=== PATIENT | male | born 1945 | race Caucasian/White ===

== ENCOUNTER 2018-07-14 23:32 | Emergency (ER) | payer MEDICARE ==
[~2018-07-14 23:32] MED LIST: Sodium Chloride Irrig Solution 250 ML BOT ONE
[2018-07-14] MEDS ORDERED: Lidocaine 1% w/Epinephrine 1:100K 20 ML VIAL ONE (23:36)
--- NOTE | 2018-07-15 00:21 | CT ---
CT BRAIN NONCONTRAST: DATE: 07/15/2018 Time: 12:00 midnight HISTORY: 73-year-old male status post acute head trauma from fall FINDINGS: There is no evidence of acute intra-axial or extra-axial hemorrhage. There is no midline shift or any other mass effect. There is no extra-axial fluid collection. There is no evidence of obstructive hydrocephalus. Calvarium is intact. IMPRESSION: No acute intracranial findings.
== END 2018-07-15 01:00 | disposition home or self-care (01) ==
LOC: MADERS 23:32
DX: S01.311A Laceration without foreign body of right ear, initial encounter (principal); S00.83XA Contusion of other part of head, initial encounter; I25.10 Atherosclerotic heart disease of native coronary artery without angina pectoris; E78.5 Hyperlipidemia, unspecified; I10 Essential (primary) hypertension; Z79.82 Long term (current) use of aspirin; Z79.899 Other long term (current) drug therapy; W01.0XXA Fall on same level from slipping, tripping and stumbling without subsequent striking against object, initial encounter
CPT/HCPCS: 12052; 70450; J2001

== ENCOUNTER 2019-04-18 11:05 | Emergency (ER) | payer OTHER ==
[~2019-04-18 11:05] MED LIST changes: +Sodium Chloride 0.9% 1,000 ML BAG ONE; -Sodium Chloride Irrig Solution 250 ML BOT ONE
[2019-04-18 11:50] LABS: #Basophils 0.1 thou/uL (0.0-0.2); #Eosinphils 0.1 thou/uL (0.0-0.7); #Lymphocytes 0.7 thou/uL (1.20-3.40); #Monocytes 0.7 thou/uL (0.11-0.59); #Neutrophils 4.8 thou/uL (1.40-6.50); %Basophils 1.6 % (0.0-1.0); %Eosinophils 1.9 % (0.0-10.0); %Lymphocytes 11.2 % (21.0-51.0); %Monocytes 10.9 % (0.0-10.0); %Neutrophils 74.5 % (42.0-75.0); Hemoglobin 12.2 g/dL (14.0-18.0); Mean Corpuscular HGB CONC 32.3 g/dL (32.0-36.0); Mean Corpuscular Hemoglobin 28.2 pg (27.0-31.0); Mean Corpuscular Volume 87.3 fL (78.0-98.0); Mean Platelet Volume 8.9 fL (7.4-10.4); Platelet Count 182 thou/uL (130-400); RBC Distribution Width 11.5 % (11.5-14.5); Red Blood Cell (RBC) Count 4.33 mill/uL (4.70-6.10); White Blood Cell (WBC) Count 6.4 thou/uL (4.8-10.8)
[2019-04-18] MEDS ORDERED: Aspirin Chewable 81 MG TAB ONE (11:50)
[2019-04-18 11:56] LABS: INR-International Normal Ratio 1.2; Prothrombin Time 14.9 SEC (12.0-14.7)
--- NOTE | 2019-04-18 11:57 | RAD ---
RADIOGRAPH CHEST 1 VIEW: DATE: 04/18/2019 HISTORY: 74-year-old male with chest pain FINDINGS: The thoracic aorta is tortuous and ectatic. There is no evidence of airspace density, pulmonary edema , or pneumothorax. The lateral costophrenic angles are not effaced. No cardiomegaly. Sternotomy wires. No interval change since 11/29/2018. IMPRESSION: 1) No acute pulmonary findings. 2) ectasia of thoracic aorta.
[2019-04-18 12:08] LABS: ALT (SGPT) 15 U/L (8-55); AST (SGOT) 15 U/L (5-34); Albumin 3.6 g/dL (3.4-4.8); Alkaline Phosphatase 61 U/L (40-110); Anion Gap 15 mmol/L (10-20); BUN (Urea Nitrogen) 34 mg/dL (8.4-25.7); Bilirubin, Total 0.8 mg/dL (0.2-1.2); Calc. Creatinine Clearance 0 mL/min (70-130); Calcium 8.5 mg/dL (7.8-10.44); Carbon Dioxide 22 mmol/L (23-31); Chloride 105 mmol/L (98-107); Estimated GFR-MDRD 31; Globulin 3.5 g/dL (2.4-3.5); Glucose 104 mg/dL (83-110); Potassium 3.7 mmol/L (3.5-5.1); Protein, Total 7.1 g/dL (5.8-8.1); Sodium 138 mmol/L (136-145)
[2019-04-18 12:25] LABS: CKMB 1.4 ng/mL (0-6.6)
[2019-04-18] MEDS ORDERED: Oseltamivir 75 MG CAP ONE (12:37)
[2019-04-18] MEDS ORDERED: Enoxaparin Sodium 40 MG/0.4 ML SYRINGE ONE (12:38)
[2019-04-18] MEDS ORDERED: Enoxaparin Sodium 60 MG/0.6 ML SYRINGE ONE (12:38)
[2019-04-18 17:00] LABS: CKMB 1.7 ng/mL (0-6.6)
== END 2019-04-18 17:07 | disposition short-term general hospital (02) ==
LOC: MADERS 11:05
DX: J10.1 Influenza due to other identified influenza virus with other respiratory manifestations (principal); R07.9 Chest pain, unspecified; E78.5 Hyperlipidemia, unspecified; I10 Essential (primary) hypertension; I25.10 Atherosclerotic heart disease of native coronary artery without angina pectoris; Z79.82 Long term (current) use of aspirin; Z79.899 Other long term (current) drug therapy
CPT/HCPCS: 36415; 71045; 80053; 82553; 83605; 83880; 84484; 85025; 85610; 87804; 93005; 96360; 96372; J1650; J7050

== ENCOUNTER 2020-12-28 10:02 | Outpatient (CLI) | payer OTHER, MEDICARE | END 2020-12-28 10:03 | disposition home or self-care (01) | LOC: MADRAD 10:02 | PROVIDERS: ATTEND Internal Medicine Nephrology | DX: M25.551 Pain in right hip (principal); M25.552 Pain in left hip ==

== ENCOUNTER 2022-04-05 11:54 | Emergency (ER) | payer MEDICARE ==
[2022-04-05] MEDS ORDERED: Sodium Chloride 0.9% 1,000 ML ONE (12:54)
[2022-04-05 13:10] LABS: INR-International Normal Ratio 1.1; Prothrombin Time 14.7 sec (12.0-14.7)
[2022-04-05 13:11] LABS: PTT 32.6 sec (22.9-36.1)
[2022-04-05 13:19] LABS: ALT (SGPT) 17 U/L (8-55); AST (SGOT) 17 U/L (5-34); Albumin 3.4 g/dL (3.4-4.8); Alkaline Phosphatase 54 U/L (40-110); Anion Gap 13 mmol/L (10-20); BUN (Urea Nitrogen) 41 mg/dL (8.4-25.7); Band 16 % (5-11); Bilirubin, Total 0.5 mg/dL (0.2-1.2); CK (CPK) 200 U/L (30-200); Calc. Creatinine Clearance 0 mL/min (70-130); Calcium 8.1 mg/dL (7.8-10.44); Carbon Dioxide 22 mmol/L (23-31); Chloride 107 mmol/L (98-107); Eosinophils 2 % (0-10); Estimated GFR 21; Globulin 2.4 g/dL (2.4-3.5); Glucose 110 mg/dL (83-110); Hemoglobin 10.5 g/dL (14.0-18.0); Hypochromia SLIGHT = 6-15 cells (100X) (0-5/hpf); Lymphocytes 9 % (21-51); MDiff Complete? YES; Magnesium 2.1 mg/dL (1.6-2.6); Mean Corpuscular HGB CONC 34.2 g/dL (32.0-36.0); Mean Corpuscular Hemoglobin 30.5 pg (27.0-31.0); Mean Corpuscular Volume 89.2 fl (78.0-98.0); Monocytes 18 % (0-10); Neutrophil 55 % (42-75); Platelet Count 144 10x3/uL (130-400); Platelet Morphology Comment Appears Adequate; Potassium 4.4 mmol/L (3.5-5.1); Protein, Total 5.8 g/dL (5.8-8.1); RBC Distribution Width 11.8 % (11.5-14.5); Red Blood Cell (RBC) Count 3.45 mill/uL (4.70-6.10); Sodium 138 mmol/L (136-145); White Blood Cell (WBC) Count 4.3 10x3/uL (4.8-10.8)
[2022-04-05 13:36] LABS: CKMB 0.8 ng/mL (0-6.6)
[2022-04-05 13:49] LABS: Bilirubin Negative (Negative); Blood, Urine Negative (Negative); Clarity Slightly Cloudy (Clear); Glucose, Urine (Dipstick) Negative (Negative); Ketone, Urine Negative (Negative); Leukocyte Moderate (Negative); Nitrite Positive (Negative); Protein, Urine (Dipstick) Trace mg/dL (Neg-Trace); Specific Gravity, Urine 1.015 (1.005-1.030); Urobilinogen 0.2 mg/dL (Less than 2); pH, Urine 5.5 (5.0-9.0)
[2022-04-05 13:58] LABS: Bacteria/HPF 4+ HPF (None Seen); RBC/HPF 0-3 HPF (0-3); Squamous Epithelial 0-3 HPF (0-3); WBC/HPF Greater Than 50 HPF (0-3)
[2022-04-05] MEDS ORDERED: Aspirin 325 MG TAB ONE (14:03)
[2022-04-05] MEDS ORDERED: Sodium Chloride 0.9% 100 ML ONE (14:04)
[2022-04-05] MEDS ORDERED: cefTRIAXone\\ROCEPHIN 1 GM VIAL ONE (14:04)
[2022-04-05 14:48] LABS: SARS-CoV-2 NAA Rapid Test DETECTED (NotDetected)
== END 2022-04-05 17:45 | disposition short-term general hospital (02) ==
LOC: MADERS 11:54
DX: U07.1 COVID-19 (principal); I12.9 Hypertensive chronic kidney disease with stage 1 through stage 4 chronic kidney disease, or unspecified chronic kidney disease; N18.9 Chronic kidney disease, unspecified; R77.8 Other specified abnormalities of plasma proteins; I95.1 Orthostatic hypotension; N39.0 Urinary tract infection, site not specified; I25.10 Atherosclerotic heart disease of native coronary artery without angina pectoris; E78.5 Hyperlipidemia, unspecified; Z79.82 Long term (current) use of aspirin; Z79.899 Other long term (current) drug therapy
CPT/HCPCS: 71045; 80053; 81003; 81015; 82550; 82553; 83605; 83735; 83880; 84443; 84484; 85025; 85610; 85730; 87040; 87804; 93005; 96361; 96365; J0696; J3490; J7050; U0002

== ENCOUNTER 2023-12-06 11:45 | Emergency (ER) | payer MEDICARE ==
[2023-12-06] MEDS ORDERED: Sodium Chloride 0.9% 1,000 ML ONE (12:40)
[2023-12-06 12:49] LABS: ALT (SGPT) 10 U/L (8-55); AST (SGOT) 8 U/L (5-34); Albumin 3.2 g/dL (3.4-4.8); Alkaline Phosphatase 58 U/L (40-110); Anion Gap 16 mmol/L (10-20); BUN (Urea Nitrogen) 63 mg/dL (8.4-25.7); Bilirubin, Total 0.6 mg/dL (0.2-1.2); Calc. Creatinine Clearance 0 mL/min (70-130); Calcium 8.2 mg/dL (7.8-10.44); Carbon Dioxide 18 mmol/L (23-31); Chloride 111 mmol/L (98-107); Estimated GFR 13; Globulin 2.7 g/dL (2.4-3.5); Glucose 85 mg/dL (83-110); Protein, Total 5.9 g/dL (5.8-8.1); Sodium 139 mmol/L (136-145)
[2023-12-06 12:52] LABS: Band 1 % (5-11); Eosinophils 6 % (0-10); Hematocrit 32.1 % (42.0-52.0); Hemoglobin 10.2 g/dL (14.0-18.0); Hypochromia SLIGHT = 6-15 cells (100X) (0-5/hpf); Lymphocytes 6 % (21-51); MDiff Complete? YES; Manual Diff?? YES; Mean Corpuscular HGB CONC 31.7 g/dL (32.0-36.0); Mean Corpuscular Hemoglobin 30.4 pg (27.0-31.0); Mean Corpuscular Volume 96.1 fl (78.0-98.0); Mean Platelet Volume 8.9 fL (7.4-10.4); Neutrophil 79 % (42-75); Platelet Count 167 10x3/uL (130-400); RBC Distribution Width 13.2 % (11.5-14.5); Reactive Lymphocytes 6 % (0-10); Red Blood Cell (RBC) Count 3.35 mill/uL (4.70-6.10); White Blood Cell (WBC) Count 9.4 10x3/uL (4.8-10.8)
[2023-12-06 12:54] LABS: Monocytes 2 % (0-10); Platelet Adequacy Comment Appears Adequate
[2023-12-06 13:19] LABS: Critical Call Chemistry NUR.AW2@1318; Potassium 6.4 mmol/L (3.5-5.1)
[2023-12-06] MEDS ORDERED: Insulin Regular, Human 100 UNIT/ML 10 ML VIAL ONE (13:52)
[2023-12-06] MEDS ORDERED: Glucagon 1 MG/ML KIT ONE (13:52)
[2023-12-06] MEDS ORDERED: Dextrose 50% Abboject 50 ML SYRINGE ONE ×2 (13:52→16:56)
[2023-12-06] MEDS ORDERED: Sodium Chloride 0.9% 100 ML ONE (14:02)
[2023-12-06 14:10] LABS: Base Excess-Venous -5.7 mmol/L (-2.0 to 3.0); Bicarbonate (HCO3v) 19.5 mmol/L (22.0-28.0); CO2 Tension (PvCO2) 35.8 mmHg (42.0-51.0); Calcium, Ionized 1.05 mmol/L (1.15-1.33); Chloride 117 mmol/L (98-107); Hemoglobin - Calc 10.1 g/dL (14.0-18.0); Potassium 6.6 mmol/L (3.5-5.1); Sodium 138 mmol/L (138-145); T. Carbon Dioxide 20.6 mmol/L (22.0-28.0); vO2 Saturation-calc 99.7 % (60.0-85.0)
[2023-12-06] MEDS ORDERED: Sodium Bicarb 50 mEq/50 ML VIAL ONE (14:52)
[2023-12-06 16:46] LABS: Base Excess-Venous -3.8 mmol/L (-2.0 to 3.0); Bicarbonate (HCO3v) 23.3 mmol/L (22.0-28.0); CO2 Tension (PvCO2) 50.9 mmHg (42.0-51.0); Calcium, Ionized 1.19 mmol/L (1.15-1.33); Chloride 112 mmol/L (98-107); Hemoglobin - Calc 10.8 g/dL (14.0-18.0); Potassium 6.1 mmol/L (3.5-5.1); Sodium 140 mmol/L (138-145); T. Carbon Dioxide 24.9 mmol/L (22.0-28.0); vO2 Saturation-calc 98.4 % (60.0-85.0)
[2023-12-06 16:58] LABS: Bilirubin Negative (Negative); Blood, Urine Negative (Negative); Glucose, Urine (Dipstick) Negative (Negative); Ketone, Urine Negative (Negative); Leukocyte Moderate (Negative); Nitrite Positive (Negative); Protein, Urine (Dipstick) Negative (Neg-Trace); Specific Gravity, Urine 1.015 (1.005-1.030); Urobilinogen 0.2 mg/dL (Less than 2)
[2023-12-06 16:59] LABS: Clarity Cloudy (Clear)
[2023-12-06 17:10] LABS: CAUTI Indications for Culture Dysuria,urgency,freq; RBC/HPF 0-3 HPF (0-3); Squamous Epithelial 0-3 HPF (0-3); WBC/HPF 21-50 HPF (0-3)
[2023-12-06 17:11] LABS: Bacteria/HPF 3+ HPF (None Seen); Urine Culture Reflex Yes Yes
== END 2023-12-06 17:50 | disposition short-term general hospital (02) ==
LOC: MADERS 11:45
DX: N17.9 Acute kidney failure, unspecified (principal); I95.9 Hypotension, unspecified; E87.5 Hyperkalemia; E03.9 Hypothyroidism, unspecified; I12.9 Hypertensive chronic kidney disease with stage 1 through stage 4 chronic kidney disease, or unspecified chronic kidney disease; N18.9 Chronic kidney disease, unspecified; Z79.82 Long term (current) use of aspirin; Z79.899 Other long term (current) drug therapy
CPT/HCPCS: 80053; 81001; 82330; 82435; 82803; 84132; 84295; 84484; 85014; 85025; 87077; 87086; 93005; 96361; 96374; 96375; 96376; 99285; J1611; J1815; J7030; J7999; 87186